=== PATIENT | male | born 1995 | race American Indian/Alaskan Native ===

== ENCOUNTER 2016-03-10 16:27 | Emergency (ER) | payer OTHER ==
[2016-03-10 22:34] VITALS: BP 116/75
--- NOTE | 2016-03-10 23:15 | Emergency Department Report ---
ED Male HPI - General Chief complaint: Urogenital-Male Stated complaint: PAIN/GROIN AREA Time Seen by Provider: 03/10/16 23:05 Source: patient Mode of arrival: Ambulatory Limitations: No Limitations - History of Present Illness Initial comments: Patient here complaining of painful and burning with urination 3 days. Denies any penile discharge and patient thinks he has come in contact with STD from his girlfriend.. Complaining the burning is 10 out of 10 when he urinates. Denies any fever or chills. Denies any nausea vomiting or diarrhea. Denies any abdominal or back pain. Denies any blood in urine. Patient reports that he finger he got STD from his girlfriend. MD Complaint: dysuria Onset/Timin -: days(s) Location: penis Radiation: none Severity: severe Severity scale (0 -10): 10 Quality: burning Consistency: intermittent Improves with: none Worsens with: urination dysuria. denies: discharge, swelling, mass, rash, urinary retention, blood in urine, fever, nausea/vomiting, incontinence - Related Data Sexually active: Yes Allergies Allergy/AdvReac Type Severity Reaction Status Date / Time No Known Allergies Allergy Unverified 03/10/16 17:00 ED Review of Systems ROS: Stated complaint: PAIN/GROIN AREA Other details as noted in HPI Comment: All other systems reviewed and negative Constitutional: denies: chills, fever ENT: denies: throat pain Respiratory: no symptoms reported Cardiovascular: denies: chest pain, palpitations, edema, syncope Gastrointestinal: denies: abdominal pain, nausea, vomiting, diarrhea Genitourinary: dysuria. denies: urgency, frequency, hematuria, discharge, testicular pain, testicular mass Musculoskeletal: denies: back pain, arthralgia Skin: denies: rash Neurological: denies: headache, weakness, numbness, paresthesias, confusion, abnormal gait, vertigo ED Past Medical Hx - Past Medical History Previous Medical History?: No - Surgical History Past Surgical History?: No - Family History Family history: no significant - Social History Smoking Status: Never Smoker Substance Use Type: None ED Physical Exam - General Limitations: No Limitations General appearance: alert, in no apparent distress - Head Head exam: Present: atraumatic, normocephalic, normal inspection - Eye Eye exam: Present: normal appearance, PERRL, EOMI Pupils: Present: normal accommodation - ENT ENT exam: Present: normal exam, normal orophraynx, mucous membranes moist, TM's normal bilaterally, normal external ear exam - Neck Neck exam: Present: normal inspection, full ROM. Absent: tenderness, meningismus, lymphadenopathy - Respiratory Respiratory exam: Present: normal lung sounds bilaterally. Absent: respiratory distress, chest wall tenderness - Cardiovascular Cardiovascular Exam: Present: regular rate, normal rhythm, normal heart sounds - GI/Abdominal GI/Abdominal exam: Present: soft, normal bowel sounds. Absent: distended, tenderness, guarding, rebound, rigid - exam: Present: normal inspection. Absent: testicular tenderness, urethral discharge, scrotal swelling External exam: Present: normal external exam. Absent: erythema, swelling, lesions, lacerations, bleeding - Extremities Exam Extremities exam: Present: normal inspection, full ROM, normal capillary refill. Absent: tenderness, pedal edema, joint swelling, calf tenderness - Back Exam Back exam: Present: normal inspection, full ROM. Absent: tenderness, CVA tenderness (R), CVA tenderness (L), muscle spasm, paraspinal tenderness, vertebral tenderness, rash noted - Neurological Exam Neurological exam: Present: alert, oriented X3, normal gait, reflexes normal. Absent: motor sensory deficit - Psychiatric Psychiatric exam: Present: normal affect, normal mood - Skin Skin exam: Present: warm, dry, intact, normal color. Absent: rash ED Course Vital Signs 03/10/16 03/10/16 16:56 22:33 Temperature 98.4 F 99.1 F Pulse Rate 87 65 Respiratory 16 20 Rate Blood Pressure 133/86 Blood Pressure 116/75 [Right] O2 Sat by Pulse 98 98 Oximetry - Reevaluation(s) Reevaluation #1: 03/10/16 23:14 Awaiting urine results. ED Medical Decision Making - Lab Data Lab Results 03/10/16 Range/Units Unknown Urine Color Yellow (Yellow) Urine Turbidity Clear (Clear) Urine pH 5.0 (5.0-7.0) Ur Specific [place] 1.027 (1.003-1.030) Urine Protein <15 mg/dl (Negative) mg/dL Urine Glucose (UA) Neg (Negative) mg/dL Urine Ketones Tr (Negative) mg/dL Urine Blood Neg (Negative) Urine Nitrite Neg (Negative) Urine Bilirubin Neg (Negative) Urine Urobilinogen < 2.0 (<2.0) mg/dL Ur Leukocyte Esterase Neg (Negative) Urine WBC (Auto) 6.0 (0.0-6.0) /HPF Urine RBC (Auto) 3.0 (0.0-6.0) /HPF U Epithel Cells (Auto) < 1.0 (0-13.0) /HPF Urine Mucus 2+ /HPF Urine culture pending - Medical Decision Making ED course: I discussed the patient that his urine was negative for bacteria and cultures are pending so hospital getting touch with him if results are positive. We also discussed treatment for STD. He thinks that his girlfriend gave him STD after speaking with her. She does not know what STD and agrees to be treated empirically for gonorrhea, Chlamydia and Trichomonas. I told him to refrain from drinking I'll call for the next week and to practice safe sex. I instructed him to return to the [facility] in 7-10 days for STD testing. He agrees with discharge instructions. Discharged home in stable condition. Patient given Rocephin 250 mg IM, Zithromax 1 g by mouth and Flagyl 2 g by mouth without any adverse reaction. Critical care attestation.: If time is entered above; I have spent that time in minutes in the direct care of this critically ill patient, excluding procedure time. ED Disposition Clinical Impression: Concern about STD in male without diagnosis, Dysuria Disposition: DISCHARGED TO HOME OR SELFCARE Is pt being admited?: No Does the pt Need Aspirin: No Condition: Stable Instructions: Safe Sex (ED), Sexually Transmitted Diseases (ED) Additional Instructions: Patient denies drinking any alcohol for the next 7 days as medication that was given to can cause nausea and vomiting. practice safe sex. Please go to [facility] to have STDs checked. Referrals: PRIMARY CARE, [Primary Care Provider] - 3-5 Days [facility] [Outside] - 7-10 days Forms: Work/School Release Form(ED)
[2016-03-11 00:53] LABS: Bilirubin,Urine NEG (Negative); Blood,Urine NEG (Negative); Ketones,Urine TR mg/dL (Negative); Leukocyte Esterase,Urine NEG (Negative); Mucus,Urine 2+ /HPF; Nitrite,Urine NEG (Negative); Protein,Urine <15 mg/dL mg/dL (Negative); Urobilinogen,Urine < 2.0 mg/dL (<2.0)
[2016-03-11] MEDS ORDERED: ROCEPHIN IM STA (01:04)
[2016-03-11] MEDS ORDERED: FLAGYL PO ONE (01:05)
[2016-03-11] MEDS ORDERED: XYLOCAINE 1% MPF 5 mL INFILTRATI ONE (01:05)
[2016-03-11] MEDS ORDERED: ZITHROMAX PO ONE (01:05)
== END 2016-03-11 02:07 | disposition home or self-care (01) ==
LOC: ED 16:27
DX: R30.0 Dysuria (principal)
CPT/HCPCS: 81001; 96372; 99283; J0696